=== PATIENT | female | born 1955 | race Caucasian/White ===

== ENCOUNTER 2021-12-09 22:14 | Inpatient (IN) | payer MEDICARE, OTHER ==
[~2021-12-09] VITALS: Ht 152.4 cm; Wt 81.6 kg
[2021-12-09 22:38] LABS: RED BLOOD COUNT 5.02 M/UL (4.00-5.10); WHITE BLOOD COUNT 12.7 K/UL (4.5-11.0)
[2021-12-09 23:41] LABS: BUN/CREATININE RATIO 27 (0-10)
[2021-12-10 04:12] LABS: HEMOGLOBIN 11.5 gm/dl (12.3-15.3); RED BLOOD COUNT 4.83 M/UL (4.00-5.10); WHITE BLOOD COUNT 12.3 K/UL (4.5-11.0)
[2021-12-10 04:43] LABS: BUN/CREATININE RATIO 27 (0-10)
[2021-12-10] MEDS ORDERED: ESCITALOPRAM OX20 MG PO (10:19)
[2021-12-10] MEDS ORDERED: CYCLOBENZAPRINE10 MG PO (10:19)
[2021-12-10] MEDS ORDERED: AMITRIPTYLINE H10 MG PO (10:19)
[2021-12-10] MEDS ORDERED: ALLEGRA ALLERG180 MG PO (10:20)
[2021-12-10] MEDS ORDERED: OXAPROZIN600 MG PO (10:20)
[2021-12-10] MEDS ORDERED: PROTONIX 40 MG40 M1 PO (10:20)
[2021-12-10] MEDS ORDERED: LISINOPRIL10 MG PO (10:20)
[2021-12-10] MEDS ORDERED: ROPINIROLE HCL1 MG PO (10:21)
[2021-12-10] MEDS ORDERED: MULTIPLE VITAM1 EAC1 PO (10:21)
== END 2021-12-13 09:50 | disposition home or self-care (01) | DRG 390 ==
LOC: ER1 22:14 → PROG CARE 12-10 03:38 → CDU 12-10 03:38 → PROG CARE 12-10 11:32 → M/S 12-12 07:32
PROVIDERS: Nurse Practitioner; ADMIT Surgery
PROC: 0D9670Z Drainage of Stomach with Drainage Device, Via Natural or Artificial Opening (ICD-10-PCS; principal; 2021-12-10)
DX: K56.609 Unspecified intestinal obstruction, unspecified as to partial versus complete obstruction (principal); I10 Essential (primary) hypertension; G25.81 Restless legs syndrome; Z20.822 Contact with and (suspected) exposure to COVID-19; J30.2 Other seasonal allergic rhinitis; M19.91 Primary osteoarthritis, unspecified site; Z90.49 Acquired absence of other specified parts of digestive tract; Z98.890 Other specified postprocedural states; Z88.0 Allergy status to penicillin; Z79.899 Other long term (current) drug therapy
CPT/HCPCS: 0240U; 71045; 80048; 80053; 80076; 81001; 82150; 82550; 82553; 83690; 84484; 85025; 93005; 96374; 96375; 99285; C9113; J2270; J2405; J3480; Q9967

== ENCOUNTER 2022-02-15 13:39 | Emergency (ER) | payer MEDICARE, OTHER ==
[~2022-02-15 13:39] MED LIST: ALLEGRA ALLERG180 MG PO; AMITRIPTYLINE H10 MG PO; CYCLOBENZAPRINE10 MG PO; ESCITALOPRAM OX20 MG PO; LISINOPRIL10 MG PO; MULTIPLE VITAM1 EAC1 PO; OXAPROZIN600 MG PO; PROTONIX 40 MG40 M1 PO; ROPINIROLE HCL1 MG PO
== END 2022-02-15 15:35 | disposition left against medical advice (07) ==
LOC: ER1 13:39
DX: S00.31XA Abrasion of nose, initial encounter (principal); M79.642 Pain in left hand; F17.210 Nicotine dependence, cigarettes, uncomplicated; Z88.0 Allergy status to penicillin; I10 Essential (primary) hypertension; W19.XXXA Unspecified fall, initial encounter
CPT/HCPCS: 73130; 99281